=== PATIENT | female | born 1935 | race Caucasian/White ===

== ENCOUNTER 2018-07-19 11:34 | Emergency (ER) | payer MEDICARE, OTHER | END 2018-07-19 15:05 | disposition home or self-care (01) | LOC: FTE 15:05 | DX: M25.561 Pain in right knee (principal); I10 Essential (primary) hypertension; R40.2412 Glasgow coma scale score 13-15, at arrival to emergency department | CPT/HCPCS: 73562; 76536; 93971; 99284-25 ==